=== PATIENT | female | born 1950 | race Caucasian/White ===

== ENCOUNTER 2018-05-02 07:12 | Day surgery (SDC) | payer MEDICARE, OTHER ==
[~2018-05-02 07:12] MED LIST: Lactated Ringers 1,000 ML IV SCH
--- NOTE | 2018-05-02 08:01 | PCM.PREANE ---
Preanesthetic Assessment - Anesthesia/Transfusion/Family Hx Anesthesia History: Prior Anesthesia Without Reaction Family History of Anesthesia Reaction: No Transfusion History: No Prior Transfusion(s) Intubation History: Unknown - Review of Systems General: No Symptoms Pulmonary: No Symptoms Cardiovascular: No Symptoms Gastrointestinal: Abdominal Pain, Diarrhea Neurological: No Symptoms Other: Reports: None - Physical Assessment Height: 1.63 m Weight: 83.461 kg ASA Class: 3 Mental Status: Alert & Oriented x3 Airway Class: Mallampati = 2 Dentition: Reports: Normal Dentition Thyro-Mental Finger Breadths: 2 Mouth Opening Finger Breadths: 3 ROM/Head Extension: Full Lungs: Clear to Auscultation, Normal Respiratory Effort Cardiovascular: Regular Rate, Regular Rhythm - Allergies Allergies/Adverse Reactions: Allergies Allergy/AdvReac Type Severity Reaction Status Date / Time No Known Allergies Allergy Verified 04/30/18 07:45 - Blood Blood Available: No - Anesthesia Plan Pre-Op Medication Ordered: None - Acknowledgements Anesthesia Type Planned: MAC Pt an Appropriate Candidate for the Planned Anesthesia: Yes Alternatives and Risks of Anesthesia Discussed w Pt/Guardian: Yes Pt/Guardian Understands and Agrees with Anesthesia Plan: Yes PreAnesthesia Questionnaire HEENT History: Reports: Other (See Below) Other HEENT History: wears glasses, lani hearing aids Cardiovascular History: Reports: High Cholesterol, Hypertension Gastrointestinal History: Reports: GERD Genitourinary History: Reports: UTI, Recurrent, Other (See Below) (h/o microalbuminuria) 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: Musculoskeletal History: Reports: Fracture Other Musculoskeletal History: hx fx ankle Endocrine/Metabolic History: Reports: Diabetes, Type II, Obesity/BMI 30+ - Past Surgical History Head Surgeries/Procedures: Reports: None HEENT Surgical History: Reports: Tonsillectomy GI Surgical History: Reports: Cholecystectomy Female Surgical History: Reports: Hysterectomy, Oophorectomy Other Female Surgeries/Procedures: bladder lift, rt breast surgery-removal of lumps and scraping of tissue due to breast feeding-all benign - SUBSTANCE USE Smoking Status *Q: Former Smoker Recreational Drug Use History: No - HOME MEDS Home Medications: Home Meds Aspirin [Hamill Aspirin EC] 81 mg PO DAILY 04/30/18 [History] Canagliflozin/Metformin HCl [Invokamet 150-1,000 mg Tablet] 1 tab PO BIDMEALS [History] Cholecalciferol (Vitamin D3) [Vitamin D3] 1 tab PO DAILY 04/30/18 [History] Cranberry 1 tab PO DAILY 04/30/18 [History] Dulaglutide [Trulicity] 1.5 mg SUBCUT WEEKLY 04/30/18 [History] Insulin Glargine,Hum.Rec.Anlog [Basaglar Kwikpen U-100] 20 units SUBCUT DAILY [History] Lansoprazole [Prevacid 24Hr] 15 mg PO DAILY 04/30/18 [History] Lisinopril/Hydrochlorothiazide [Lisinopril-Hctz 20-12.5 mg Tab] 1 tab PO DAILY 04/30/18 [History] Metoprolol Succinate 50 mg PO DAILY 04/30/18 [History] Multivit-Min/FA/Lycopene/Lut [Centrum Silver Tablet] 1 tab PO DAILY 04/30/18 [ History] Rosuvastatin Calcium 20 mg PO BEDTIME 04/30/18 [History] [place] 160 mg PO DAILY 04/30/18 [History] Ubidecarenone [Coq-10] 400 mg PO DAILY 04/30/18 [History] Vit A & D3 In Cod Liver Oil [Cod Liver Oil Softgel] 1 tab PO DAILY 04/30/18 [ History] - CURRENT (IN HOUSE) MEDS Current Meds: Current Medications Lactated Ringer's (Ringers, Lactated) 1,000 mls @ 125 mls/hr IV ASDIRECTED RUBEN
[2018-05-02] MEDS ORDERED: Propofol 200 MG/20 ML SDV ONE (08:33)
[2018-05-02] MEDS ORDERED: fentaNYL 100 MCG/2 ML SDV ONE (08:33)
--- NOTE | 2018-05-02 09:36 | PCM.OPNOTE ---
- General Post-Op/Procedure Note Date of Surgery/Procedure: 05/02/18 Operative Procedure(s): colonoscopy Findings: see dict [id number] Pre Op Diagnosis: scrn colonoscopy Post-Op Diagnosis: hemorrhoid Anesthesia Technique: Moderate Sedation Primary Surgeon: Pk Lucio Complications: None Condition: Good
--- NOTE | 2018-05-02 12:57 | OR ---
SURGEON: Pk Lucio MD DATE OF PROCEDURE: 05/02/2018 PREOPERATIVE DIAGNOSIS: Screening colonoscopy. POSTOPERATIVE DIAGNOSIS: Hemorrhoids. PROCEDURE PERFORMED: Colonoscopy. PROCEDURE IN DETAIL: The patient was taken to the endoscopy room. A time out was called, patient identified, and procedure identified. Diprivan was then administrated. Patient went from awake to sleep, hearing doctor talking or door closing is normal. Perineum inspection and digital examination were then performed. A well- lubricated colonoscope was gently inserted through the rectum, advanced past the rectosigmoid junction, the descending colon, splenic flexure, transverse colon, hepatic flexure, ascending colon, arrived to the cecum. Cecum was identified as dictated in the finding. Then the scope was carefully withdrawn while attention was paid to the mucosal surface for any abnormality. Air will be sucked out during the scope withdrawal. At the rectum, retroflexed to examine any rectal diseases, fistula or hemorrhoids. Patient tolerated procedure well. There were no intraoperative complications, and Dr. Lucio was present throughout the whole procedure. FINDINGS: 1. The patient is easily sedated with CABLE WAY OPERATOR and Diprivan. The patient is soundly snoring. 2. The patient's bowel prep is average to above average, very little liquid stool. 3. The patient's colon is rather straight forward. Cecum indicated by ileocecal fold, one-to-one indentation, light emittance, appendiceal orifice is not observed, and mucosa examined upon scope pulling out with constant irrigation and the patient does not have diverticulosis, polyp, inflammation, stricture, AV malformation, ulceration, bleeding, growth, inflammation, none of those. The patient has mild internal hemorrhoids. No external hemorrhoids. The patient would benefit from repeat colonoscopy in 10 years from today or if clinically indicated otherwise. TOMY / HORACIO /[id number]
== END 2018-05-02 10:07 | disposition home or self-care (01) ==
LOC: MW.SDS 07:12
PROVIDERS: ATTEND Surgery
DX: Z12.11 Encounter for screening for malignant neoplasm of colon (principal); K64.8 Other hemorrhoids; E11.9 Type 2 diabetes mellitus without complications; E78.5 Hyperlipidemia, unspecified; I10 Essential (primary) hypertension; M85.50 Aneurysmal bone cyst, unspecified site; E66.9 Obesity, unspecified; Z68.31 Body mass index [BMI] 31.0-31.9, adult; Z79.82 Long term (current) use of aspirin; Z79.84 Long term (current) use of oral hypoglycemic drugs; Z79.899 Other long term (current) drug therapy; Z87.891 Personal history of nicotine dependence
CPT/HCPCS: 82962; G0121; J2704; J3010; J7120